=== PATIENT | female | born 1960 | race Caucasian/White ===

== ENCOUNTER 2022-07-17 13:30 | Emergency (ER) | payer MEDICAID ==
[~2022-07-17] VITALS: Ht 167.6 cm; Wt 65.8 kg
[2022-07-17 13:43] VITALS: BP 200/100
[2022-07-17] MEDS ORDERED: LABETALOL 20 MG/4 ML VIAL IVP ONE (13:50)
[2022-07-17] MEDS ORDERED: ONDANSETRON 4 MG/2 ML VIAL IVP ONE (13:55)
[2022-07-17] MEDS ORDERED: MORPHINE SULFATE 4 MG/ML SYR IVP ONE (13:55)
--- NOTE | 2022-07-17 14:01 | NUR ---
PT BIB AMBULANCE, C/O HTN, LEWIS, CP SINCE THIS AM, WORSEN THROUGHOUT THE DAY. NAD.
[2022-07-17] MEDS ORDERED: hydrALAZINE 20 MG/ML VIAL IVP ONE (14:10)
[2022-07-17 14:12] LABS: BASOPHILS # (AUTO) 0.1 K/uL (0.00-0.22); BASOPHILS % (AUTO) 0.7 % (0.0-2.0); EOSINOPHILS # (AUTO) 0.2 K/uL (0-0.4); EOSINOPHILS % (AUTO) 1.6 % (0.0-4.0); HEMATOCRIT 39.4 % (36-48); HEMOGLOBIN 13.7 g/dL (12.0-16.0); LYMPHOCYTES # (AUTO) 2.6 K/uL (2.5-16.5); LYMPHOCYTES % (AUTO) 24.8 % (20.5-51.1); MEAN CORPUSCULAR HEMOGLOBIN 32 pg (27-31); MEAN CORPUSCULAR HGB CONC 35 g/dL (33-37); MEAN CORPUSCULAR VOLUME 90.5 fL (80-94); MONOCYTES # (AUTO) 0.6 K/uL (0.8-1.0); MONOCYTES % (AUTO) 5.7 % (1.7-9.3); NEUTROPHILS # (AUTO) 7.1 K/uL (1.8-7.7); NEUTROPHILS % (AUTO) 67.2 % (42.2-75.2); PLATELET COUNT (AUTO) 326 K/uL (140-450); RED BLOOD CELL COUNT(AUTO) 4.35 MIL/uL (4.20-5.40); RED CELL DISTRIBUTION WIDTH 13.2 % (11.6-13.7); WHITE BLOOD COUNT (AUTO) 10.5 K/uL (4.8-10.8)
--- NOTE | 2022-07-17 14:38 | NUR ---
SYMPTOMATIC BRADYCARDIA, PT IS HYPOTENSIVE, DIAPHORETIC, 1LNS IVP BOLUS STARTED , ATROPINE 0.5 MG IVP GIVEN
[2022-07-17] MEDS ORDERED: NACL 0.9% 1,000 ML IV ONE (14:40)
[2022-07-17] MEDS ORDERED: ATROPINE 0.5 MG/5 ML SYR IVP ONE (14:40)
[2022-07-17 14:47] LABS: CHOL/HDL RATIO 5.1 (1-4.5); HDL CHOLESTEROL 53 mg/dL (40-60); LDL (CALC) 183 mg/dL (60-100); TRIGLYCERIDES 168 mg/dL (30-150)
--- NOTE | 2022-07-17 14:50 | NUR ---
BLOOD PRESSURE HR IMPROVED, SKIN DRY, PT STS FEELING BETTER
[2022-07-17 14:53] LABS: ALBUMIN 4.7 g/dL (3.4-5.0); ANION GAP 13.9 (8-16); CARBON DIOXIDE 24.4 mmol/L (21-32); CREATININE 0.6 mg/dL (0.6-1.3); POTASSIUM 3.3 mmol/L (3.5-5.1); TOTAL BILIRUBIN 0.6 mg/dL (0.0-1.0)
--- NOTE | 2022-07-17 14:53 | NUR ---
Pal chapa in [facility] - 07/17/22 at 1454 by [facility] [id number] randell thomas
--- NOTE | 2022-07-17 14:56 | NUR ---
spoke with [facility] major case detective kiki who will have md speak to [facility] for admittence due to unstable for transfer. Pt was critical care patient showing bradicardic on the monitor running at 34-38bpm, diaphrotic and hypotensive needing immediate treatment with pacer pad application high ivf infusion under pressure, medication treatment atropine. to help reverse severe bradycardia. pt was deemed by md sharp as unstable for transfer. pending call back from [facility] for md/md for hospital admittence
--- NOTE | 2022-07-17 16:07 | NUR ---
UPDATED JORDAN MENA OF PATIENTS CONDITION.
--- NOTE | 2022-07-17 16:12 | NUR ---
PATIENT HAS 8/10 HEADACHE, REQUESTING PAIN MEDICATION. DR. SAGE MADE AWARE.
[2022-07-17] MEDS ORDERED: KETOROLAC 15 MG/ML VIAL IVP ONE (16:15)
--- NOTE | 2022-07-17 17:02 | NUR ---
PATIENT WAS ASSISTED TO USING BEDPAN.
--- NOTE | 2022-07-17 18:00 | NUR ---
SUSANNA FROM [facility] CALLED @1800, SPOKE TO FLY, LOOKING FOR PLACEMENT/BED TO TRANSFER OUT. ACCEPTING DR. SOTO.
--- NOTE | 2022-07-17 19:22 | NUR ---
PT TO TRANSFER TO [facility] . ETA TO FOLLOW
--- NOTE | 2022-07-18 00:17 | NUR ---
SPOKE WITH SUSANNA FROM [facility] , NO ETA FOR TRANSPORT WILL MAKE CONTACT
--- NOTE | 2022-07-18 00:44 | NUR ---
Patient resting in bed, A/Ox4, chest rise and fall symmetrical, no c/o pain of s/s of distress, on monitor.
--- NOTE | 2022-07-18 02:14 | NUR ---
Patient resting in bed, A/Ox4, chest rise and fall symmetrical, no c/o pain of s/s of distress, on monitor.
--- NOTE | 2022-07-18 02:14 | NUR ---
Attempted to call report to [facility] Nurse at [phone]. Phone number does not work. ER insurance and benefits clerk verbally informed.
--- NOTE | 2022-07-18 04:11 | NUR ---
Patient to be transferred to [facility]. Is being transferred due to insurance reasons. Receiving facility has accepting physician and available space. ER physician has signed transfer form. Patient or responsible republican has agreed to transfer and signed form. Patient belongings inventoried and will be sent with patient. Copy of nursing notes, lab reports, EKG, Physicians Orders and X-rays to be sent with patient. Report called to Michelle TAYLOR at receiving facility. Michelle TAYLOR verbalized understanding of report, no further questions. Ambulance service has been called for transfer.
--- NOTE | 2022-07-18 04:11 | NUR ---
Patient resting in bed, A/Ox4, chest rise and fall symmetrical, no c/o pain of s/s of distress, on monitor.
--- NOTE | 2022-07-18 06:45 | NUR ---
CONTACT INFO FOR REPORT : [facility] [phone] [id number] (NURSING SUP) BED NUMBER :[id number] BED 1 NOAM FINNEY
--- NOTE | 2022-07-18 06:50 | NUR ---
Patient resting in bed, A/Ox4, chest rise and fall symmetrical, no c/o pain of s/s of distress, on monitor.
--- NOTE | 2022-07-18 07:13 | NUR ---
Change of shift report given to AM shift Nurse Anshu TAYLOR. AM shift Nurse Anshu RN verbalized understanding of report, no further questions.
--- NOTE | 2022-07-18 07:56 | NUR ---
PT CALM AND RESTING AT THIS TIME. VITALS STABLE. ON ROOM AIR. NO ACUTE DISTRESS NOTED. ON MONITOR.
[2022-07-18] MEDS ORDERED: PROCHLORPERAZINE 10 MG/2 ML VIAL IVP ONE (08:55)
[2022-07-18] MEDS ORDERED: KETOROLAC 15 MG/ML VIAL IVP ONE (08:55)
[2022-07-18] MEDS ORDERED: NAPR-1704 PO (09:11)
[2022-07-18] MEDS ORDERED: PROC-87 PO (09:11)
--- NOTE | 2022-07-18 09:17 | NUR ---
pt report from gregorio rn, per kacy perez pt ok for discharge after compazine and toradol.
[2022-07-18 09:45] VITALS: BP 149/71
--- NOTE | 2022-07-18 09:45 | NUR ---
Patient discharged with v/s stable. Written and verbal after care instructions given and explained. Patient alert, oriented and verbalized understanding of instructions. Ambulatory with steady gait. All questions addressed prior to discharge. ID band removed. Patient advised to follow up with PMD. Rx of NAPROXEN, COMPAZINE given. Patient educated on indication of medication including possible reaction and side effects. Opportunity to ask questions provided and answered.
== END 2022-07-18 09:45 | disposition home or self-care (01) ==
LOC: MED 13:30
DX: I10 Essential (primary) hypertension (principal); Z20.822 Contact with and (suspected) exposure to COVID-19; E78.5 Hyperlipidemia, unspecified; Z79.899 Other long term (current) drug therapy; Z90.49 Acquired absence of other specified parts of digestive tract
CPT/HCPCS: 36415; 71045; 80053; 80061; 83880; 84484; 85025; 87426; 93005; 96361; 96374; 96375; 96376; 99291; J0360; J0780; J1885; J2270; J2405; J3490; J7030; Q0092